=== PATIENT | male | born 1985 | race African-American/Black ===

== ENCOUNTER 2018-06-12 18:28 | Emergency (ER) | payer MEDICAID ==
[~2018-06-12] VITALS: Ht 177.8 cm; Wt 79.4 kg
[2018-06-12 19:20] VITALS: BP 118/75
[2018-06-12] MEDS ORDERED: IBUPROFEN 600 MG TABLET PO ONE ×2 (20:00→20:02)
[2018-06-12] MEDS ORDERED: ACETAMINOPHEN ES 500 MG TABLET PO ONE (20:00)
[2018-06-12] MEDS ORDERED: ACETAMINOPHEN ES 500 MG TABLET ONE (20:02)
== END 2018-06-12 21:49 | disposition home or self-care (01) ==
LOC: ER 18:31
DX: S39.012A Strain of muscle, fascia and tendon of lower back, initial encounter (principal); F43.10 Post-traumatic stress disorder, unspecified; F41.9 Anxiety disorder, unspecified; F32.9 Major depressive disorder, single episode, unspecified; Z60.2 Problems related to living alone; W12.XXXA Fall on and from scaffolding, initial encounter; Y93.89 Activity, other specified; Y92.89 Other specified places as the place of occurrence of the external cause; Y99.8 Other external cause status
CPT/HCPCS: 72110; 99283; A4606